=== PATIENT | male | born 2000 | race African-American/Black ===

== ENCOUNTER 2021-05-10 21:00 | Emergency (ER) | payer OTHER ==
[2021-05-10 21:09] VITALS: BP 93/57; PULSE 59; TEMP 98.5; BMI 19.2
[2021-05-10] MEDS ORDERED: RAPID SEQUENCE INTUBATION KIT NR ONE (22:49)
== END 2021-05-10 23:11 | disposition home or self-care (01) ==
LOC: JERFT 21:00
PROC: 0HQMXZZ Repair Right Foot Skin, External Approach (ICD-10-PCS; principal; 2021-05-10)
DX: S91.011A Laceration without foreign body, right ankle, initial encounter (principal)
CPT/HCPCS: 99282-25